=== PATIENT | female | born 1970 | race Caucasian/White ===

== ENCOUNTER 2023-09-22 13:12 | Emergency (ER) | payer BC, MEDICAID ==
[~2023-09-22] VITALS: Ht 157.5 cm; Wt 71.7 kg
[2023-09-22 14:06] VITALS: BP_SYST 113; PULSE 88; RESP 18; TEMP 98.3; O2SAT 98
[2023-09-22 15:42] LABS: INFLUENZA TYPE A Negative (NEGATIVE); INFLUENZA TYPE B NEGATIVE (NEGATIVE)
[2023-09-22 15:46] LABS: COVID19 ANTIGEN SOFIA FIA NEGATIVE (NEGATIVE)
== END 2023-09-22 16:20 | disposition left against medical advice (07) ==
LOC: SED 13:12
DX: R53.1 Weakness (principal); Z20.822 Contact with and (suspected) exposure to COVID-19; Z53.21 Procedure and treatment not carried out due to patient leaving prior to being seen by health care provider
CPT/HCPCS: 36415